=== PATIENT | female | born 1975 | race Caucasian/White ===

== ENCOUNTER 2021-04-29 11:59 | Observation (INO) | payer OTHER ==
[~2021-04-29] VITALS: Ht 170.2 cm; Wt 134.5 kg
[~2021-04-29 11:59] MED LIST: ALBU90OI INH; Anti-Diarrheal2 MG PO; CYCL10 PO; HYDHCL25 PO; LIDO700A20 TOP; ONDA4ODT SL; PANT40 PO; Propranolol HCl80 MG PO; RIZATRIPTAN10 MG PO; TRAZ50 PO; VITAMIN D32000 UNI1 PO; Zoloft100 MG PO; [UNRECOGNIZED DRUG - MIXTURE] TOP
[2021-04-29 12:28] LABS: BASOPHILS ABSOLUTE AUTO 0.03 K/mm3 (0.00-0.23); BASOPHILS PERCENT AUTO 0 % (0-2); EOSINOPHILS ABSOLUTE AUTO 0.09 K/mm3 (0.00-0.68); EOSINOPHILS PERCENT AUTO 1 % (0-6); Hematocrit 41.8 % (33.0-51.0); Hemoglobin 14.3 g/dL (11.5-16.0); IMMATURE GRAN ABSOLUTE AUTO 0.05 K/mm3 (0.00-0.10); IMMATURE GRAN PERCENT AUTO 1 % (0-1); LYMPHOCYTES ABSOLUTE AUTO 2.19 K/mm3 (0.84-5.20); LYMPHOCYTES PERCENT AUTO 21 % (21-46); MONOCYTES ABSOLUTE AUTO 0.77 K/mm3 (0.16-1.47); MONOCYTES PERCENT AUTO 7 % (4-13); Mean Corpuscular HGB 29.1 pg (26.0-34.0); Mean Corpuscular HGB Conc 34.2 g/dL (31.5-36.5); Mean Corpuscular Volume 85 fL (80-100); Mean Platelet Volume 9.6 fL (9.1-12.4); NEUTROPHILS ABSOLUTE AUTO 7.34 K/mm3 (1.96-9.15); NEUTROPHILS PERCENT AUTO 70 % (41-73); Platelet Count 292 K/mm3 (150-400); RDW Coefficient Variation 13.2 % (11.7-14.2); RDW Standard Deviation 41.1 fL (35.1-46.3); Red Blood Cell Count 4.92 M/mm3 (3.80-5.20); White Blood Cell Count 10.47 K/mm3 (4.00-11.30)
[2021-04-29 12:48] LABS: Alanine Aminotransfer (ALT/SGP 28 U/L (12-78); Albumin, Blood 3.2 g/dL (3.4-5.0); Albumin/Globulin Ratio 0.8 (0.8-1.8); Alk Phos 88 U/L (50-136); Anion Gap 8 mmol/L (6-16); Aspartate Aminotrans (AST/SGOT 20 U/L (12-37); Bilirubin, Total 0.7 mg/dL (0.1-1.0); Blood Urea Nitrogen 12 mg/dL (8-24); Bun/Creatinine Ratio 14.4 (12.0-20.0); CO2, Blood 21 mmol/L (21-32); Calcium, Blood 8.6 mg/dL (8.5-10.1); Chloride, Blood 106 mmol/L (98-108); Creatinine, Blood 0.84 mg/dL (0.40-1.00); Glomerular Filtration Rate >60 (60-); Glucose, Blood 118 mg/dL (70-99); Potassium, Blood 3.7 mmol/L (3.5-5.5); Sodium, Blood 135 mmol/L (136-145); Total Protein, Blood 7.2 g/dL (6.4-8.2)
[2021-04-29] MEDS ORDERED: Inderal 20 mg T20 MG PO (15:24)
[2021-04-29] MEDS ORDERED: Hydroxyzine HCl50 MG PO (15:24)
[2021-04-29] MEDS ORDERED: SERT100 PO (15:25)
[2021-04-29 19:51] LABS: Source, Urine Clean Catch
[2021-04-29 19:56] LABS: Appearance, Urine Clear (Clear); Bilirubin, Urine Neg (Neg); Blood, Urine Neg (Neg); Color, Urine Yellow (P-Yellow); Glucose Qualitative, Urine Neg (Neg); Ketones, Urine Neg (Neg); Leukocyte Esterase, Urine Neg (Neg); Nitrite, Urine Neg (Neg); Protein, Urine Neg (Neg); Urobilinogen, Urine NORM (Normal)
--- NOTE | 2021-04-29 20:09 | NUR ---
PT ADMITTED TO ROOM 363 FROM ED 1814. ORIENTED TO ROOM SETUP AND CALL LIGHT. PT CURRENT CHEST PAIN AND BILAT FLANK PAIN IS 6/10. INCREASES WITH DEEP INSP. VSS, SATS 99% ROOM AIR. RESP EVEN AND UNLABOERD. HANDS APPEAR CYANOTIC AND COLD. PT STATES SHE DOESN'T THINK THIS IS HEART RELATED. AWAITING TELE BOX. TUBE SYSTEM DOWN AND SENT SOMEONE TO GET TELE BOX. WILL CALL DR EAGLE FOR FURTHER ORDERS REGUARDING CP.
--- NOTE | 2021-04-29 20:12 | NUR ---
SUMM- PT A/O X4. CHEST PAIN ON ARRIVAL TO 363 04/30 IN CENTER OF CHEST RADIATING BILAT FLANK, FEELS LIKE A TIGHT BAND AROUND ABD, INCREASED PAIN WITH DEEP BREATH. CALLED DR EAGLE 1849 AND RECEIVED ORDER FOR NITRO SL X2. ASSESS WHETHER NITRO RELEIVES PAIN. IF NOT GIVE FENTANYL. AFTER 2 DOSES PAIN WENT FROM A 6-03/30. ABRAHAN TEE RN RESUMED CARE AND WILL F/U. SET UP TELE, CONFIRMED SR 70. NOC RN TO FOLLOW.
--- NOTE | 2021-04-30 00:20 | NUR ---
Female PT with chest pain rt upper chest that radiates to back had 2 nitro at beginning of shift with pain decrease from 6 to 5 & IV fentanyl helpful to decrease pain for a few minites. Tylenol 650 mg po with mild helpful effect. Call DR TORRES & curt for 15 to 30 mg toradol iv obtained Q 6 PRN severe pain as well as 5 to 10 mg oxycodone q 4 hrs severe pain. PT had abd US done & she is very tender RT Upper quad. Sleeping now with home cpap in place. Serial troponin neg so far, NSR on Tele. [place] PT said [facility] sent her to Hospital.
[2021-04-30 04:50] LABS: BASOPHILS ABSOLUTE AUTO 0.06 K/mm3 (0.00-0.23); BASOPHILS PERCENT AUTO 1 % (0-2); EOSINOPHILS ABSOLUTE AUTO 0.22 K/mm3 (0.00-0.68); EOSINOPHILS PERCENT AUTO 2 % (0-6); Hematocrit 40.2 % (33.0-51.0); Hemoglobin 13.6 g/dL (11.5-16.0); IMMATURE GRAN ABSOLUTE AUTO 0.07 K/mm3 (0.00-0.10); IMMATURE GRAN PERCENT AUTO 1 % (0-1); LYMPHOCYTES ABSOLUTE AUTO 3.14 K/mm3 (0.84-5.20); LYMPHOCYTES PERCENT AUTO 30 % (21-46); MONOCYTES ABSOLUTE AUTO 0.92 K/mm3 (0.16-1.47); MONOCYTES PERCENT AUTO 9 % (4-13); Mean Corpuscular HGB 29.6 pg (26.0-34.0); Mean Corpuscular HGB Conc 33.8 g/dL (31.5-36.5); Mean Corpuscular Volume 87 fL (80-100); Mean Platelet Volume 9.6 fL (9.1-12.4); NEUTROPHILS PERCENT AUTO 58 % (41-73); Platelet Count 250 K/mm3 (150-400); RDW Coefficient Variation 13.4 % (11.7-14.2); RDW Standard Deviation 42.4 fL (35.1-46.3); White Blood Cell Count 10.51 K/mm3 (4.00-11.30)
[2021-04-30 05:10] LABS: Alanine Aminotransfer (ALT/SGP 32 U/L (12-78); Albumin, Blood 3.3 g/dL (3.4-5.0); Alk Phos 73 U/L (50-136); Anion Gap 4 mmol/L (6-16); Aspartate Aminotrans (AST/SGOT 19 U/L (12-37); Bilirubin, Total 0.9 mg/dL (0.1-1.0); Blood Urea Nitrogen 13 mg/dL (8-24); Bun/Creatinine Ratio 13.3 (12.0-20.0); CO2, Blood 30 mmol/L (21-32); Calcium, Blood 8.5 mg/dL (8.5-10.1); Chloride, Blood 101 mmol/L (98-108); Creatinine, Blood 0.97 mg/dL (0.40-1.00); Globulin, Blood 3.2 g/dL (2.2-4.0); Glomerular Filtration Rate >60 (60-); Glucose, Blood 92 mg/dL (70-99); Sodium, Blood 135 mmol/L (136-145); Total Protein, Blood 6.5 g/dL (6.4-8.2)
--- NOTE | 2021-04-30 05:49 | NUR ---
PT reports good effect from toradol & oxycodone 5 mg with release of squeezing type pain in flanks & chest then. She is using own CPAP & resting quietly after. PT has both covid 19 vaccines the second immunization was Apr 08 2021
--- NOTE | 2021-04-30 09:39 | NUR ---
Echocardiogram completed.
[2021-04-30 11:49] LABS: Cholesterol 180 mg/dL (50-200); HDL Cholesterol 60 mg/dL (>39); LDL/HDL RATIO 1.5; Low Density Lipoprotein Chol 90 mg/dL (0-110); Triglycerides 152 mg/dL (30-160); Very Low Density Lipoprot Chol 30 mg/dL (6-32)
--- NOTE | 2021-04-30 13:00 | NUR ---
Pt resting in bed and eating her lunch. Pt is A&O and reports 3/10 pain in her chest and 5/10 pain in her kidney area. Pt denies dyspnea at rest but reports SOB with exertion. Pt denies anxiety at this time. Engaged in therapeutic conversation regarding advanced directives. Pt is agreeable to learn about AD. Pt is a and this RN thanked her for her service. Educated on life sustaining treatments in [place] and each section that needs to be completed. Discussed the importance of considering appointing a healthcare tour sales representative. Pt expresses appreciation and reports no concerns at this time. Spoke with Primary RN Lidia and discussed case. Palliative Care will remain available if called upon.
[2021-04-30] MEDS ORDERED: NITR100CA PO (15:59)
--- NOTE | 2021-04-30 16:23 | NUR ---
SHIFT SUMMARY JORDON HAD PIV REMOVED, PAPERWORK GONE OVER, NO NEW MEDS TO FAX TO PHARMACY. PT WHEELED DOWN TO ER IN . PT HAS APPT AT END OF MONTH WITH PCP, ATTEMPTED TO GET SOONER APPT, SHE IS ON A WAIT LIST FOR A SOONER APPT.
== END 2021-04-30 16:21 | disposition home or self-care (01) ==
LOC: ER 11:59 → MEDS 12:00
PROVIDERS: Emergency Medicine; Family Medicine; ADMIT Internal Medicine
DX: R07.89 Other chest pain (principal); N39.0 Urinary tract infection, site not specified; R10.811 Right upper quadrant abdominal tenderness; K21.9 Gastro-esophageal reflux disease without esophagitis; I10 Essential (primary) hypertension; E11.9 Type 2 diabetes mellitus without complications; K76.0 Fatty (change of) liver, not elsewhere classified; R11.2 Nausea with vomiting, unspecified; E66.9 Obesity, unspecified; F41.9 Anxiety disorder, unspecified; F32.9 Major depressive disorder, single episode, unspecified; M25.562 Pain in left knee; M25.571 Pain in right ankle and joints of right foot; N80.9 Endometriosis, unspecified; N28.1 Cyst of kidney, acquired; Z68.42 Body mass index [BMI] 45.0-49.9, adult
CPT/HCPCS: 36415; 71046; 76700; 80053; 80061; 81003; 83036; 83690; 84484; 85025; 93005; 93010; 93306; 94762; 96372; 96374; 96375; 96376; 99285-25; A9270; G0378; J1650; J1885; J2270; J2405; J3010

== ENCOUNTER 2024-12-22 13:14 | Emergency (ER) | payer OTHER ==
[~2024-12-22] VITALS: Ht 170.2 cm; Wt 149.7 kg
[~2024-12-22 13:14] MED LIST changes: +Hydroxyzine HCl50 MG PO; +Inderal 20 mg T20 MG PO; +NITR100CA PO; +SERT100 PO
[2024-12-22 13:57] LABS: BASOPHILS ABSOLUTE AUTO 0.03 K/mm3 (0.00-0.23); BASOPHILS PERCENT AUTO 0 % (0-2); EOSINOPHILS ABSOLUTE AUTO 0.02 K/mm3 (0.00-0.68); EOSINOPHILS PERCENT AUTO 0 % (0-6); Hematocrit 39.7 % (33.0-51.0); Hemoglobin 14.4 g/dL (11.5-16.0); IMMATURE GRAN ABSOLUTE AUTO 0.05 K/mm3 (0.00-0.10); IMMATURE GRAN PERCENT AUTO 0 % (0-1); LYMPHOCYTES ABSOLUTE AUTO 1.14 K/mm3 (0.84-5.20); LYMPHOCYTES PERCENT AUTO 10 % (21-46); MONOCYTES ABSOLUTE AUTO 1.39 K/mm3 (0.16-1.47); MONOCYTES PERCENT AUTO 12 % (4-13); Mean Corpuscular HGB 34.1 pg (26.0-34.0); Mean Corpuscular HGB Conc 36.3 g/dL (31.5-36.5); Mean Corpuscular Volume 94 fL (80-100); Mean Platelet Volume 9.8 fL (9.1-12.4); NEUTROPHILS ABSOLUTE AUTO 9.15 K/mm3 (1.96-9.15); NEUTROPHILS PERCENT AUTO 78 % (41-73); Platelet Count 133 K/mm3 (150-400); RDW Coefficient Variation 15.6 % (11.7-14.2); RDW Standard Deviation 53.8 fL (35.1-46.3); Red Blood Cell Count 4.22 M/mm3 (3.80-5.20); White Blood Cell Count 11.78 K/mm3 (4.00-11.30)
[2024-12-22 14:35] LABS: Albumin, Blood 2.8 g/dL (3.4-5.0); Albumin/Globulin Ratio 0.5 (0.8-1.8); Bilirubin, Total 5.1 mg/dL (0.1-1.0); Bun/Creatinine Ratio 8.4 (12.0-20.0); Calcium, Blood 9.3 mg/dL (8.5-10.1); Creatinine, Blood 0.59 mg/dL (0.40-1.00); Globulin, Blood 5.6 g/dL (2.2-4.0); Potassium, Blood 3.2 mmol/L (3.5-5.5); Total Protein, Blood 8.4 g/dL (6.4-8.2)
[2024-12-22] MEDS ORDERED: Cyclobenzaprine5 MG PO (15:05)
[2024-12-22] MEDS ORDERED: Ondansetron HCl 2 MG / ML 2ML Vial IV ONE ×2 (15:15→17:25)
[2024-12-22] MEDS ORDERED: NS 1,000 ML IV SCH (15:55)
[2024-12-22 16:32] LABS: CORONAVIRUS COVID-19 AG Negative (NEGATIVE); INFLUENZA A AG Negative (NEGATIVE); INFLUENZA B AG Negative (NEGATIVE)
[2024-12-22] MEDS ORDERED: Ketorolac Tromethamine 30mg Vial IV ONE (17:25)
[2024-12-22 17:32] LABS: Source, Urine Clean Catch
[2024-12-22 17:40] LABS: Appearance, Urine Hazy (Clear); Bilirubin, Urine Neg (Neg); Blood, Urine 1+ (Neg); Color, Urine Yellow (P-Yellow); Glucose Qualitative, Urine Neg (Neg); Ketones, Urine Neg (Neg); Leukocyte Esterase, Urine 2+ (Neg); Nitrite, Urine Neg (Neg); Protein, Urine 1+ (Neg); Urobilinogen, Urine 2+ (Normal)
[2024-12-22 17:47] LABS: Bacteria Many /hpf; Squamous Epithelial Cells Few /hpf (Few)
[2024-12-22 18:00] VITALS: BP 163/100
[2024-12-22] MEDS ORDERED: MetroNIDAZOLE 500 MG Tab PO ONE (18:05)
[2024-12-22] MEDS ORDERED: Ciprofloxacin 500 MG Tab PO ONE (18:05)
[2024-12-22] MEDS ORDERED: ONDA4ODT MM (18:09)
[2024-12-22] MEDS ORDERED: BENZ100A PO (18:09)
[2024-12-22] MEDS ORDERED: Cipro500 MG PO (18:09)
[2024-12-22] MEDS ORDERED: Flagyl500 MG PO (18:09)
== END 2024-12-22 18:35 | disposition home or self-care (01) ==
LOC: ER 13:14
PROVIDERS: Emergency Medicine; Student in an Organized Health Care Education/Training Program
DX: K52.9 Noninfective gastroenteritis and colitis, unspecified (principal); N39.0 Urinary tract infection, site not specified; K74.60 Unspecified cirrhosis of liver; F41.9 Anxiety disorder, unspecified; K21.9 Gastro-esophageal reflux disease without esophagitis; Z91.013 Allergy to seafood; Z88.0 Allergy status to penicillin; Z88.5 Allergy status to narcotic agent; Z79.891 Long term (current) use of opiate analgesic; Z79.899 Other long term (current) drug therapy; Z79.2 Long term (current) use of antibiotics
CPT/HCPCS: 71046; 74177; 80053; 81001; 83605; 83690; 85025; 87077; 87086; 87186; 87428-QW; 93005; 93010; 96361; 96374-59; 96375; 96376; 99284-25; A9270; J1885; J2405; J7030; Q9967

== ENCOUNTER 2024-12-24 11:09 | Emergency (ER) | payer OTHER ==
[~2024-12-24] VITALS: Ht 170.2 cm; Wt 142.9 kg
[~2024-12-24 11:09] MED LIST changes: +BENZ100A PO; +Cipro500 MG PO; +Cyclobenzaprine5 MG PO; +Flagyl500 MG PO; +ONDA4ODT MM
[2024-12-24] MEDS ORDERED: Benzonatate 100 MG Cap PO ONE ×3 (11:30→17:40)
[2024-12-24] MEDS ORDERED: CefTRIAXone Sodium 1,000 MG in NS 100 ML IV ONE (11:30)
[2024-12-24 11:40] LABS: BASOPHILS ABSOLUTE AUTO 0.04 K/mm3 (0.00-0.23); BASOPHILS PERCENT AUTO 1 % (0-2); EOSINOPHILS ABSOLUTE AUTO 0.08 K/mm3 (0.00-0.68); EOSINOPHILS PERCENT AUTO 1 % (0-6); Hematocrit 37.7 % (33.0-51.0); Hemoglobin 13.3 g/dL (11.5-16.0); IMMATURE GRAN ABSOLUTE AUTO 0.03 K/mm3 (0.00-0.10); IMMATURE GRAN PERCENT AUTO 0 % (0-1); LYMPHOCYTES ABSOLUTE AUTO 1.26 K/mm3 (0.84-5.20); LYMPHOCYTES PERCENT AUTO 15 % (21-46); MONOCYTES ABSOLUTE AUTO 1.09 K/mm3 (0.16-1.47); MONOCYTES PERCENT AUTO 13 % (4-13); Mean Corpuscular HGB 33.8 pg (26.0-34.0); Mean Corpuscular HGB Conc 35.3 g/dL (31.5-36.5); Mean Corpuscular Volume 96 fL (80-100); Mean Platelet Volume 10.3 fL (9.1-12.4); NEUTROPHILS ABSOLUTE AUTO 6.09 K/mm3 (1.96-9.15); NEUTROPHILS PERCENT AUTO 71 % (41-73); Platelet Count 128 K/mm3 (150-400); RDW Coefficient Variation 15.8 % (11.7-14.2); RDW Standard Deviation 55.6 fL (35.1-46.3); Red Blood Cell Count 3.94 M/mm3 (3.80-5.20); White Blood Cell Count 8.59 K/mm3 (4.00-11.30)
[2024-12-24] MEDS ORDERED: ALBU90OI INH (11:41)
[2024-12-24] MEDS ORDERED: CYMBALTA30 M1 PO (11:42)
[2024-12-24] MEDS ORDERED: LOPE2C PO (11:42)
[2024-12-24] MEDS ORDERED: RIZATRIPTAN10 MG SL (11:43)
[2024-12-24] MEDS ORDERED: PANT40 PO (11:43)
[2024-12-24] MEDS ORDERED: Metoclopramide HCl 5MG / ML 2ML Vial IV ONE (12:00)
[2024-12-24] MEDS ORDERED: NS 1,000 ML IV SCH ×2 (12:00→18:25)
[2024-12-24 12:01] LABS: Albumin, Blood 2.5 g/dL (3.4-5.0); Albumin/Globulin Ratio 0.5 (0.8-1.8); Bilirubin, Total 5.5 mg/dL (0.1-1.0); Bun/Creatinine Ratio 8.6 (12.0-20.0); Calcium, Blood 8.6 mg/dL (8.5-10.1); Creatinine, Blood 0.7 mg/dL (0.40-1.00); Globulin, Blood 5.3 g/dL (2.2-4.0); Potassium, Blood 3.6 mmol/L (3.5-5.5); Total Protein, Blood 7.8 g/dL (6.4-8.2)
[2024-12-24] MEDS ORDERED: Morphine Sulfate 4 MG/1 ML Injection IV ONE ×2 (15:15→17:40)
[2024-12-24 19:30] VITALS: BP 133/75
[2024-12-24] MEDS ORDERED: ONDA4ODT MM (20:24)
[2024-12-24] MEDS ORDERED: Diflucan150 MG PO (20:24)
== END 2024-12-24 21:41 | disposition home or self-care (01) ==
LOC: ER 11:09
PROVIDERS: Emergency Medicine
DX: K52.9 Noninfective gastroenteritis and colitis, unspecified (principal); E80.6 Other disorders of bilirubin metabolism; K80.20 Calculus of gallbladder without cholecystitis without obstruction; K21.9 Gastro-esophageal reflux disease without esophagitis; F41.9 Anxiety disorder, unspecified; F32.A Depression, unspecified; Z88.5 Allergy status to narcotic agent; Z88.0 Allergy status to penicillin; Z91.013 Allergy to seafood; Z79.899 Other long term (current) drug therapy
CPT/HCPCS: 36415; 71046; 74181; 76705; 80053; 83605; 85025; 87040; 93005; 93010; 96365; 96375; 99284-25; A9270; J0696; J2270; J2765; J7030

== ENCOUNTER 2025-02-27 15:14 | Inpatient (IN) | payer OTHER ==
[~2025-02-27] VITALS: Ht 170.2 cm; Wt 139.9 kg
[~2025-02-27 15:14] MED LIST changes: +CYMBALTA30 M1 PO; +Diflucan150 MG PO; +LOPE2C PO; +RIZATRIPTAN10 MG SL
[2025-02-27 16:44] LABS: BASOPHILS ABSOLUTE AUTO 0.03 K/mm3 (0.00-0.23); BASOPHILS PERCENT AUTO 1 % (0-2); EOSINOPHILS ABSOLUTE AUTO 0.01 K/mm3 (0.00-0.68); EOSINOPHILS PERCENT AUTO 0 % (0-6); Hematocrit 35.2 % (33.0-51.0); Hemoglobin 12.2 g/dL (11.5-16.0); IMMATURE GRAN ABSOLUTE AUTO 0.01 K/mm3 (0.00-0.10); IMMATURE GRAN PERCENT AUTO 0 % (0-1); LYMPHOCYTES ABSOLUTE AUTO 0.78 K/mm3 (0.84-5.20); LYMPHOCYTES PERCENT AUTO 13 % (21-46); MONOCYTES ABSOLUTE AUTO 0.76 K/mm3 (0.16-1.47); MONOCYTES PERCENT AUTO 13 % (4-13); Mean Corpuscular HGB 34.6 pg (26.0-34.0); Mean Corpuscular HGB Conc 34.7 g/dL (31.5-36.5); Mean Corpuscular Volume 100 fL (80-100); Mean Platelet Volume 10.2 fL (9.1-12.4); NEUTROPHILS ABSOLUTE AUTO 4.51 K/mm3 (1.96-9.15); NEUTROPHILS PERCENT AUTO 74 % (41-73); Platelet Count 82 K/mm3 (150-400); RDW Coefficient Variation 15.7 % (11.7-14.2); RDW Standard Deviation 57.3 fL (35.1-46.3); Red Blood Cell Count 3.53 M/mm3 (3.80-5.20)
[2025-02-27 17:25] LABS: Albumin, Blood 2.5 g/dL (3.4-5.0); Albumin/Globulin Ratio 0.6 (0.8-1.8); Bilirubin, Total 4.5 mg/dL (0.1-1.0); Bun/Creatinine Ratio 8.6 (12.0-20.0); Calcium, Blood 8.5 mg/dL (8.5-10.1); Creatinine, Blood 0.7 mg/dL (0.40-1.00); Globulin, Blood 4.2 g/dL (2.2-4.0); Potassium, Blood 3.5 mmol/L (3.5-5.5); Total Protein, Blood 6.7 g/dL (6.4-8.2)
[2025-02-27] MEDS ORDERED: Methocarbamol500 MG PO (18:20)
[2025-02-27] MEDS ORDERED: ASMANEX220 M14 INH (18:21)
[2025-02-27] MEDS ORDERED: Loperamide HCl 2 MG Cap PO PRN (19:50)
[2025-02-27] MEDS ORDERED: Ondansetron HCl 2 MG / ML 2ML Vial IV PRN (19:50)
[2025-02-27] MEDS ORDERED: Furosemide 10 MG/ML 4ML Vial IV SCH (20:00)
[2025-02-27] MEDS ORDERED: CefTRIAXone Sodium 1,000 MG in NS 100 ML IV SCH (21:00)
[2025-02-27] MEDS ORDERED: Lactobacil 2-S.Thermo-Bifido 1 1 Cap PO SCH (21:00)
[2025-02-27] MEDS ORDERED: Azithromycin 500 MG in NS 250 ML IV SCH (21:00)
[2025-02-27] MEDS ORDERED: Heparin Sodium,Porcine 5,000 UNIT/0.5 ML SDV SC SCH (21:00)
[2025-02-27] MEDS ORDERED: NS 250 ML IV PRN (23:50)
[2025-02-28] MEDS ORDERED: Acetaminophen 325 MG TABLET PO PRN (00:50)
[2025-02-28] MEDS ORDERED: Diabetic GuaiFENesin 100 MG/5 ML 5MLUDC PO ONE ×2 (00:50→01:10)
--- NOTE | 2025-02-28 00:51 | NUR ---
NEW T-ORDERS RECEIVED FROM THE ON-CALL HOSPITALIST DR. BOLAÑOS: -TYLENOL 650MG PO Q4HRS PRN -MUCINEX 600MG PO BID -MUCINEX 600MG PO NOW. ENTERED TO [employer], SEE EMAR.
[2025-02-28] MEDS ORDERED: GuaiFENesin 600 MG TabCR PO ONE (01:45)
--- NOTE | 2025-02-28 02:25 | NUR ---
SHIFT SUMMARY/ADMITTED TO MEDICAL FLOOR #[id number] @2309 REPORT RECEIVED FROM ALANA Hodge ED RN. @ 3891 PT ARRIVED TO MEDICAL FLOOR IN A GURNEY. CHARGE NURSE RACHANA COMPLETED THE ADMISSION ASSESSMENT. SKIN CHECK WITH THIS PBX TECHNICIAN. PT INDEPENDENTLY AMBULATED/TRANSFERRED TO THE HOSPITAL BED. PT BROUGHT ALL HER BELONINGS WITH HER. NON-SLIP SOCKS APPLIED AND EDUCATED ON FALL PRECAUTIONS. EDUCATED ON SMOKING POLICY. EDUCATED COMPANY DOCTOR LIGHT. RT BY THE BEDSIDE SET UP CPAP FOR THE NIGHT. CONTINUOUS PULSE OXIMETER IN PLACE. PT IS ON 4L VIA NASAL CANNULA. PT IS A/O X4, ABLE TO MAKE HER NEEDS KNOWN AND COOPERATIVE WITH CARE. BED AT THE LOWEST POSITION, CALL LIGHT WITHIN REACH.
[2025-02-28 04:28] VITALS: BP 66/55
[2025-02-28 04:33] VITALS: BP 133/65
[2025-02-28 05:02] LABS: BASOPHILS ABSOLUTE AUTO 0.03 K/mm3 (0.00-0.23); BASOPHILS PERCENT AUTO 0 % (0-2); EOSINOPHILS PERCENT AUTO 0 % (0-6); Hemoglobin 11.9 g/dL (11.5-16.0); IMMATURE GRAN ABSOLUTE AUTO 0.02 K/mm3 (0.00-0.10); IMMATURE GRAN PERCENT AUTO 0 % (0-1); LYMPHOCYTES ABSOLUTE AUTO 0.82 K/mm3 (0.84-5.20); LYMPHOCYTES PERCENT AUTO 11 % (21-46); MONOCYTES ABSOLUTE AUTO 0.96 K/mm3 (0.16-1.47); MONOCYTES PERCENT AUTO 13 % (4-13); Mean Corpuscular HGB 34.1 pg (26.0-34.0); Mean Corpuscular Volume 100 fL (80-100); Mean Platelet Volume 9.9 fL (9.1-12.4); NEUTROPHILS ABSOLUTE AUTO 5.49 K/mm3 (1.96-9.15); NEUTROPHILS PERCENT AUTO 75 % (41-73); Platelet Count 79 K/mm3 (150-400); RDW Coefficient Variation 15.4 % (11.7-14.2); RDW Standard Deviation 57.1 fL (35.1-46.3); Red Blood Cell Count 3.49 M/mm3 (3.80-5.20); White Blood Cell Count 7.32 K/mm3 (4.00-11.30)
[2025-02-28 05:09] LABS: International Normalized Ratio 1.54
[2025-02-28 05:23] LABS: Albumin, Blood 2.4 g/dL (3.4-5.0); Albumin/Globulin Ratio 0.6 (0.8-1.8); Bilirubin, Total 3.9 mg/dL (0.1-1.0); Bun/Creatinine Ratio 10.5 (12.0-20.0); Calcium, Blood 7.9 mg/dL (8.5-10.1); Creatinine, Blood 0.76 mg/dL (0.40-1.00); Globulin, Blood 4.2 g/dL (2.2-4.0); Magnesium, Blood 1.8 mg/dL (1.6-2.4); Potassium, Blood 3.3 mmol/L (3.5-5.5); Total Protein, Blood 6.6 g/dL (6.4-8.2)
[2025-02-28] MEDS ORDERED: Pantoprazole Sodium 40 MG Tab PO SCH (06:00)
[2025-02-28] MEDS ORDERED: Insulin Human Lispro 100 Units/ML 3ML Syringe SC SCH (07:30)
[2025-02-28] MEDS ORDERED: Albuterol 2.5 MG/3 ML VIAL INH PRN (08:05)
[2025-02-28 08:35] VITALS: BP 128/67
[2025-02-28] MEDS ORDERED: Furosemide 10 MG/ML 4ML Vial IV SCH (09:00)
[2025-02-28] MEDS ORDERED: Diabetic GuaiFENesin 100 MG/5 ML 5MLUDC PO SCH (09:00)
[2025-02-28] MEDS ORDERED: Guaifenesin/Dextromethorphan Syrup 5 ML UDC PO PRN (09:40)
[2025-02-28 15:21] VITALS: BP 114/66
[2025-02-28] MEDS ORDERED: Spironolactone 50 MG Tab PO SCH (17:00)
[2025-02-28 19:18] VITALS: BP 135/73
--- NOTE | 2025-02-28 19:29 | NUR ---
summary PATIENT CONTINUE TO HAVE HARSH PRODUCTIVE COUGH THATS BLOOD TINGED. DR LOWE NOTIFIED AND ORDERED ROBITUSSIN. NOTIFIED DR LOWE OF PATIENTS POTASSIUM LEVEL OF 3.3, STATED HE WOULD REVIEW AND SUPPLEMENT. PATIENT HAD A LOW GRADE TEMP THIS EVENING 100.0 AND MEDICATED WITH TYLENOL FOR THAT BUT ALSO PATIETN HAS MOD PAIN TO RIBS/CHEST FROM ALL THE COUGHING. MONITORING INTAKE AND OUTPUT. DAILY WEIGHTS. FLUID RESTRICTION OF 2L.
[2025-02-28] MEDS ORDERED: HYDROcodone 5-APAP 325 TAB PO PRN (20:05)
--- NOTE | 2025-02-28 20:06 | NUR ---
NEW T-ORDERS FROM , ON-CALL HOSPITALIST: -NORCO PO 5/325MG Q6HRS PRN -D/C HEPARIN 5000 UNITS SC D/T PT COUGHING UP BLOODY SPUTUM. CHARGE NURSE NOTIFIED. ENTERED TO [employer], SEE EMAR.
[2025-02-28] MEDS ORDERED: GuaiFENesin 600 MG TabCR PO SCH (21:00)
[2025-03-01 03:12] VITALS: BP 118/106
--- NOTE | 2025-03-01 03:24 | NUR ---
SHIFT SUMMARY PT CONTINUES TO HAVE COUGHING EPISODES DURING NIGHT HRS INTERMITTENTLY. PRODUCTIVE COUGH WITH MIXED CLEAR AND REDDISH SPUTUM. NAUSEA R/T COUGHING. MEDICATED PER EMAR. PT REPORTS 8/10 PAIN IN RIBS R/T COUGHING, BACK ACHE AND SORE THROAT. MEDICATED WITH NEW ORDER OF NORCO 5/325MG PO Q6HRS PRN. PT REPORTS EFFECTIVE. O2 @4L VIA NASAL CANNULA, CONTINUOUS PULSE OXIMETER SAT'S> 94%. RT BY THE BEDSIDE ADMINISTERING PRN NEB TX'S. CPAP @NIGHT WITH HUMIDIFIER. HEPARIN PROPHYLAXIS D/C'D PER HOSPITALIST D/T RED COLOR SPUTUM. SCD'S IN PLACE. LUNGS DIMNISHED @BASES, WHEEZING/TIGHT UPPER LOBES. PT IS ON 2L FLUID RESTRICTION AND VERBALIZED UNDERSTANDING. BED AT THE LOWEST POSITION, CALL LIGHT W/I REACH. PT IS A/O X4, ABLE TO MAKE HER NEEDS KNOWN AND COOPERATIVE WITH CARE.
[2025-03-01 04:41] LABS: BASOPHILS ABSOLUTE AUTO 0.03 K/mm3 (0.00-0.23); BASOPHILS PERCENT AUTO 1 % (0-2); EOSINOPHILS ABSOLUTE AUTO 0.01 K/mm3 (0.00-0.68); EOSINOPHILS PERCENT AUTO 0 % (0-6); Hematocrit 38.3 % (33.0-51.0); Hemoglobin 13.1 g/dL (11.5-16.0); IMMATURE GRAN ABSOLUTE AUTO 0.02 K/mm3 (0.00-0.10); IMMATURE GRAN PERCENT AUTO 0 % (0-1); LYMPHOCYTES ABSOLUTE AUTO 1.17 K/mm3 (0.84-5.20); LYMPHOCYTES PERCENT AUTO 20 % (21-46); MONOCYTES ABSOLUTE AUTO 0.79 K/mm3 (0.16-1.47); MONOCYTES PERCENT AUTO 13 % (4-13); Mean Corpuscular HGB 33.9 pg (26.0-34.0); Mean Corpuscular HGB Conc 34.2 g/dL (31.5-36.5); Mean Corpuscular Volume 99 fL (80-100); Mean Platelet Volume 10.2 fL (9.1-12.4); NEUTROPHILS ABSOLUTE AUTO 3.88 K/mm3 (1.96-9.15); NEUTROPHILS PERCENT AUTO 66 % (41-73); Platelet Count 85 K/mm3 (150-400); RDW Coefficient Variation 15.5 % (11.7-14.2); RDW Standard Deviation 56.8 fL (35.1-46.3); Red Blood Cell Count 3.86 M/mm3 (3.80-5.20)
[2025-03-01 05:02] LABS: Albumin, Blood 2.7 g/dL (3.4-5.0); Albumin/Globulin Ratio 0.6 (0.8-1.8); Bilirubin, Total 3.6 mg/dL (0.1-1.0); Bun/Creatinine Ratio 13.2 (12.0-20.0); Calcium, Blood 8.3 mg/dL (8.5-10.1); Creatinine, Blood 0.76 mg/dL (0.40-1.00); Globulin, Blood 4.8 g/dL (2.2-4.0); Potassium, Blood 3.3 mmol/L (3.5-5.5); Total Protein, Blood 7.5 g/dL (6.4-8.2)
[2025-03-01 07:37] VITALS: BP 121/76
[2025-03-01] MEDS ORDERED: Albuterol 2.5 MG/3 ML VIAL INH SCH (08:05)
[2025-03-01] MEDS ORDERED: Benzonatate 100 MG Cap PO PRN (08:50)
[2025-03-01] MEDS ORDERED: Pantoprazole Sodium 40 MG Injection IV SCH (16:00)
[2025-03-01 16:22] LABS: Hematocrit 35.3 % (33.0-51.0); Mean Corpuscular HGB 34.1 pg (26.0-34.0); Mean Corpuscular Volume 100 fL (80-100); Mean Platelet Volume 10.9 fL (9.1-12.4); Platelet Count 79 K/mm3 (150-400); RDW Coefficient Variation 15.5 % (11.7-14.2); RDW Standard Deviation 57.2 fL (35.1-46.3); Red Blood Cell Count 3.52 M/mm3 (3.80-5.20); White Blood Cell Count 5.39 K/mm3 (4.00-11.30)
[2025-03-01 16:56] VITALS: BP 133/76
[2025-03-01] MEDS ORDERED: Carvedilol 3.125 MG Tab PO SCH (17:00)
[2025-03-01 19:56] VITALS: BP 118/67
--- NOTE | 2025-03-01 20:00 | NUR ---
SHIFT SUMMARY PT IS A/OX4. INDEPENDENT TO BSC. ON 2L WATER RESTIRCTION. NO ACUTE CHANGES THROUGHOUT THIS SHIFT. PT REMAINS ON 4L NC. PT REPORTS SPUTUM IS LESS BLOODY WHEN COMPARED TO YESTERDAY, PINK IN COLOR THROUGHOUT THIS SHIFT. MEDICATED WITH ROBITUSSIN TWICE THIS SHIFT AND NORCO X1 PER JAN. PT IS PLEASANT AND COOPERATIVE WITH CARE AND CALLS APPROPRIATELY USING THE CALL LIGHT.
--- NOTE | 2025-03-02 03:01 | NUR ---
SHIFT SUMMARY NO ACUTE EVENTS DURING THIS SHIFT. O2 VIA NASAL CANNULA @4L. CONTINUOUS PULSE OXIMETER SAT'S>94%. CPAP @NIGHT. PRN ROBITUSSIN ADMINISTERED X2 FOR PRODUCTIVE COUGH. PT PRODUCING LIGHT BROWN SPUTUM, MODERATE AMOUNT. PRN NORCO 5/325MG ADMINISTERED @HS FOR C/O 8/10 PAIN @RIBS/CHEST/SORE THROAT R/T COUGHING. BILATERAL +2 EDEMA ON LE'S. IV ABX'S INFUSED ORDERED. PT ABLE TO GET FEW HRS REST DURING THIS SHIFT. PT IS A/O X4, ABLE TO MAKE HER NEEDS KNOWN AND COOPERATIVE WITH CARE. BED AT THE LOWEST POSITION, CALL LIGHT W/I REACH. PT CONTINUES ON 2L FLUID RESTRICTION AND DAILY STANDING WT.
[2025-03-02 04:35] VITALS: BP 160/74
[2025-03-02 05:39] LABS: Hematocrit 37.1 % (33.0-51.0); Hemoglobin 12.3 g/dL (11.5-16.0); Mean Corpuscular HGB 33.2 pg (26.0-34.0); Mean Corpuscular HGB Conc 33.2 g/dL (31.5-36.5); Mean Corpuscular Volume 100 fL (80-100); Mean Platelet Volume 10.8 fL (9.1-12.4); Platelet Count 91 K/mm3 (150-400); RDW Coefficient Variation 15.3 % (11.7-14.2); White Blood Cell Count 5.96 K/mm3 (4.00-11.30)
[2025-03-02 06:04] LABS: Bun/Creatinine Ratio 13.6 (12.0-20.0); Calcium, Blood 7.9 mg/dL (8.5-10.1); Creatinine, Blood 0.81 mg/dL (0.40-1.00); Potassium, Blood 3.5 mmol/L (3.5-5.5)
[2025-03-02 07:18] VITALS: BP 119/61
[2025-03-02 15:01] VITALS: BP 126/59
--- NOTE | 2025-03-02 18:35 | NUR ---
ASSUMED CARE OF PT, COMPARED TO NIGHT BEFRE PT DOING MUCH BETTER, STILL IS WORKING TO BREATH BUT IS MAINTAING SATURATION IN THE MID 90S. THICK BROWN AND RED STREAKED SPUTUM NOTED. PT GIVEN COUGH MEDICATION FOR COMFORT. RESPIRATORY TREATMENTS Q 4 AND PT HASNT HAD ANY COMPLAINTS. PT ABLE TO MAKE NEEDS KNOWN
[2025-03-02 19:42] VITALS: BP 108/58
--- NOTE | 2025-03-02 21:52 | NUR ---
NEW T-ORDER RECEIVED FROM THE ON-CALL HOSPITALIST DR. GANDARA: COLACE 100MG PO BID AND COLACE 100MG PO NOW. ENTERED TO [employer], SEE EMAR.
[2025-03-02] MEDS ORDERED: Docusate Sodium 100 MG Cap PO ONE (21:55)
[2025-03-02 23:55] VITALS: BP 103/60
--- NOTE | 2025-03-03 03:08 | NUR ---
SHIFT SUMMARY NO ACUTE EVENTS DURING THIS SHIFT. PT HAD ONE LONGER EPISODE OF COUGHING, RT BY THE BEDSIDE TO ADMINISTER NEB TX. TESSALON PEARLS AND ROBITUSSIN PRN Q4-6HRS ADMINISTERED T/O THIS SHIFT. PRN NORCO FOR PT C/O 8/10 RIBS/CHEST/BACK R/T COUGHING. O2 @5L VIA NASAL CANNULA. CONTINUOUS PULSE OXIMETER SAT'S MID 90'S. PT'S WOULD LIKE TO MEET WITH THE PROVIDER, WILL BE BY THE BEDSIDE AROUND 0830 THIS MORNING FOR A FEW HOURS. BED AT THE LOWEST POSITION, CALL LIGHT W/I REACH.
[2025-03-03 04:30] VITALS: BP 116/61
[2025-03-03 05:31] LABS: BASOPHILS ABSOLUTE AUTO 0.02 K/mm3 (0.00-0.23); BASOPHILS PERCENT AUTO 0 % (0-2); EOSINOPHILS ABSOLUTE AUTO 0.09 K/mm3 (0.00-0.68); EOSINOPHILS PERCENT AUTO 1 % (0-6); Hematocrit 36.5 % (33.0-51.0); Hemoglobin 12.5 g/dL (11.5-16.0); Mean Corpuscular HGB 33.9 pg (26.0-34.0); Mean Corpuscular HGB Conc 34.2 g/dL (31.5-36.5); Mean Corpuscular Volume 99 fL (80-100); Platelet Count 95 K/mm3 (150-400); RDW Coefficient Variation 14.9 % (11.7-14.2); RDW Standard Deviation 54.4 fL (35.1-46.3); Red Blood Cell Count 3.69 M/mm3 (3.80-5.20); White Blood Cell Count 6.41 K/mm3 (4.00-11.30)
[2025-03-03 05:36] LABS: IMMATURE GRAN ABSOLUTE AUTO 0.02 K/mm3 (0.00-0.10); IMMATURE GRAN PERCENT AUTO 0 % (0-1); LYMPHOCYTES ABSOLUTE AUTO 1.52 K/mm3 (0.84-5.20); LYMPHOCYTES PERCENT AUTO 24 % (21-46); MONOCYTES ABSOLUTE AUTO 1.11 K/mm3 (0.16-1.47); MONOCYTES PERCENT AUTO 17 % (4-13); NEUTROPHILS ABSOLUTE AUTO 3.65 K/mm3 (1.96-9.15); NEUTROPHILS PERCENT AUTO 57 % (41-73)
[2025-03-03 05:57] LABS: BAND PERCENT MAN 3 % (0-8); BASOPHILS PERCENT MAN 0 % (0-2); EOSINOPHILS PERCENT MAN 0 % (0-6); LYMPHOCYTES ABSOLUTE MAN 0.96 K/mm3 (0.84-5.20); LYMPHOCYTES PERCENT MAN 15 % (21-46); MONOCYTES ABSOLUTE MAN 0.64 K/mm3 (0.16-1.47); MONOCYTES PERCENT MAN 10 % (4-13); SEG NEUTROPHILS PERCENT MAN 72 % (41-73); TOTAL CELLS COUNTED 100
[2025-03-03 06:00] LABS: Albumin, Blood 2.4 g/dL (3.4-5.0); Albumin/Globulin Ratio 0.6 (0.8-1.8); Bilirubin, Total 2.7 mg/dL (0.1-1.0); Calcium, Blood 8.4 mg/dL (8.5-10.1); Creatinine, Blood 0.73 mg/dL (0.40-1.00); Globulin, Blood 4.2 g/dL (2.2-4.0); Potassium, Blood 3.2 mmol/L (3.5-5.5); Total Protein, Blood 6.6 g/dL (6.4-8.2)
[2025-03-03 07:24] VITALS: BP 125/72
[2025-03-03] MEDS ORDERED: Spironolactone 50 MG Tab PO SCH (09:00)
[2025-03-03] MEDS ORDERED: Sennosides 8.6 MG Tab PO PRN (09:00)
[2025-03-03] MEDS ORDERED: Polyethylene Glycol 3350 17 gm PO SCH (09:00)
[2025-03-03] MEDS ORDERED: Docusate Sodium 100 MG Cap PO SCH (09:00)
[2025-03-03] MEDS ORDERED: Potassium Chloride 10 Meq Tablet SA PO SCH (09:00)
[2025-03-03 15:26] VITALS: BP 106/62
[2025-03-03 19:36] VITALS: BP 112/58
[2025-03-04] VITALS (7 sets, daily range): BP systolic 104–124; BP diastolic 60–76
--- NOTE | 2025-03-04 03:15 | NUR ---
SHIFT SUMMARY NO ACUTE EVENTS DURING THIS SHIFT. PT IS ON 4L VIA NASAL CANNULA, SAT'S LOW 90%. FEW COUGHING EPISODES, RT ADMINISTERING NEB TX'S BY THE BEDSIDE. MILD EFFECTIVNESS OF THE PRN TESSALON PEARLS AND ROBITUSSIN. PT C/O 7-8/10 RIBS/CHEST/BACK PAIN R/T COUGHING. PRN NORCO PO ADMINISTERED ORDERED. BED AT THE LOWEST POSITION, CALL LIGHT W/I REACH. PT IS ABLE TO MAKE HER NEEDS KNOWN AND IS COOPERATIVE WITH CARE.
[2025-03-04 05:13] LABS: BASOPHILS ABSOLUTE AUTO 0.04 K/mm3 (0.00-0.23); BASOPHILS PERCENT AUTO 1 % (0-2); EOSINOPHILS ABSOLUTE AUTO 0.16 K/mm3 (0.00-0.68); EOSINOPHILS PERCENT AUTO 3 % (0-6); Hemoglobin 12.3 g/dL (11.5-16.0); Mean Corpuscular HGB 33.2 pg (26.0-34.0); Mean Corpuscular HGB Conc 33.2 g/dL (31.5-36.5); Mean Corpuscular Volume 100 fL (80-100); Mean Platelet Volume 11.1 fL (9.1-12.4); Platelet Count 118 K/mm3 (150-400); RDW Coefficient Variation 14.9 % (11.7-14.2); RDW Standard Deviation 55.7 fL (35.1-46.3); White Blood Cell Count 5.95 K/mm3 (4.00-11.30)
[2025-03-04 05:15] LABS: IMMATURE GRAN ABSOLUTE AUTO 0.02 K/mm3 (0.00-0.10); IMMATURE GRAN PERCENT AUTO 0 % (0-1); LYMPHOCYTES ABSOLUTE AUTO 1.76 K/mm3 (0.84-5.20); LYMPHOCYTES PERCENT AUTO 30 % (21-46); MONOCYTES ABSOLUTE AUTO 0.97 K/mm3 (0.16-1.47); MONOCYTES PERCENT AUTO 16 % (4-13); NEUTROPHILS PERCENT AUTO 50 % (41-73)
[2025-03-04 05:44] LABS: Albumin, Blood 2.3 g/dL (3.4-5.0); Albumin/Globulin Ratio 0.5 (0.8-1.8); Bilirubin, Total 2.5 mg/dL (0.1-1.0); Bun/Creatinine Ratio 13.8 (12.0-20.0); Calcium, Blood 8.1 mg/dL (8.5-10.1); Creatinine, Blood 0.8 mg/dL (0.40-1.00); Globulin, Blood 4.5 g/dL (2.2-4.0); Potassium, Blood 3.1 mmol/L (3.5-5.5); Total Protein, Blood 6.8 g/dL (6.4-8.2)
[2025-03-04] MEDS ORDERED: Potassium Chloride 40 MEQ in NS 250 ML IV ONE (09:15)
[2025-03-04] MEDS ORDERED: Potassium Chloride 20 MEQ TabCR PO ONE (12:00)
[2025-03-04] MEDS ORDERED: Peg 400/Hypromellose/Glycerin 15 DROP/ML BTL BOTHEYES PRN (18:20)
--- NOTE | 2025-03-04 19:27 | NUR ---
assumed care of pt. pt doing better today, pt states she feels exhausted. o2 decreaased to 3l from 4 and maintaining mid 90s. cough treated with medication sputum more clr today, but is still thick. pt is independant in room and is very cooperative with care, calls appropriatly and makes needs known.
--- NOTE | 2025-03-05 02:57 | NUR ---
SHIFT SUMMARY NO ACUTE EVENTS DURING THIS SHIFT. O2 @3L VIA NASAL CANNULA. O2 SAT'S LOW 90'S. CPAP DURING NIGHT HRS. MEDICATED PER EMAR FOR C/O 7/10 CHEST/BACK/RIBS PAIN R/T COUGHING. PT REPORTS EFFECTIVE. PRN ROBITUSSIN AND TESSALON PEARLS ADMINISTERED. PT AWARE OF THE 2L FLUID RESTRICTION. SMALL BM THIS HS. BED AT THE LOWEST POSITION, CALL LIGHT W/I REACH. PT IS A/O X4, ABLE TO MAKE HER NEEDS KNOWN AND COOPERATIVE WITH CARE.
[2025-03-05 04:09] VITALS: BP 119/64
[2025-03-05] MEDS ORDERED: Artificial Tears Opth Oint 7 GM BOTHEYES PRN (04:50)
--- NOTE | 2025-03-05 04:50 | NUR ---
NEW T-ORDER FROM THE ON-CALL HOSPITALIST: REFRESH EYE DROPS;1 DROP BOTH EYES Q6HRS PRN. ENTERED TO [employer], SEE EMAR.
[2025-03-05 06:20] LABS: BASOPHILS ABSOLUTE AUTO 0.03 K/mm3 (0.00-0.23); BASOPHILS PERCENT AUTO 1 % (0-2); EOSINOPHILS ABSOLUTE AUTO 0.16 K/mm3 (0.00-0.68); EOSINOPHILS PERCENT AUTO 3 % (0-6); Hematocrit 36.9 % (33.0-51.0); Hemoglobin 12.5 g/dL (11.5-16.0); IMMATURE GRAN ABSOLUTE AUTO 0.02 K/mm3 (0.00-0.10); IMMATURE GRAN PERCENT AUTO 0 % (0-1); LYMPHOCYTES ABSOLUTE AUTO 1.89 K/mm3 (0.84-5.20); LYMPHOCYTES PERCENT AUTO 31 % (21-46); MONOCYTES ABSOLUTE AUTO 0.94 K/mm3 (0.16-1.47); MONOCYTES PERCENT AUTO 15 % (4-13); Mean Corpuscular HGB 33.5 pg (26.0-34.0); Mean Corpuscular HGB Conc 33.9 g/dL (31.5-36.5); Mean Corpuscular Volume 99 fL (80-100); NEUTROPHILS ABSOLUTE AUTO 3.05 K/mm3 (1.96-9.15); NEUTROPHILS PERCENT AUTO 50 % (41-73); Platelet Count 145 K/mm3 (150-400); RDW Coefficient Variation 14.9 % (11.7-14.2); RDW Standard Deviation 54.5 fL (35.1-46.3); Red Blood Cell Count 3.73 M/mm3 (3.80-5.20); White Blood Cell Count 6.09 K/mm3 (4.00-11.30)
[2025-03-05 06:48] LABS: Albumin, Blood 2.4 g/dL (3.4-5.0); Albumin/Globulin Ratio 0.5 (0.8-1.8); Bilirubin, Total 2.4 mg/dL (0.1-1.0); Bun/Creatinine Ratio 17.7 (12.0-20.0); Calcium, Blood 8.9 mg/dL (8.5-10.1); Creatinine, Blood 0.62 mg/dL (0.40-1.00); Globulin, Blood 4.6 g/dL (2.2-4.0); Potassium, Blood 3.8 mmol/L (3.5-5.5)
[2025-03-05 07:50] VITALS: BP 129/69
--- NOTE | 2025-03-05 10:52 | NUR ---
FIRST BM WAS SMALL AN FIRM MIXED IN THE URINE. SECOND BM WAS LARGE DIAHHREA. BOTH WERE IN THE BSC
[2025-03-05] MEDS ORDERED: MethylPREDNISolone Sod Succ 125 MG Vial IV SCH (12:00)
[2025-03-05] MEDS ORDERED: Dextran/Hypromellose/Glycerin 15 DROP/ML BTL BOTHEYES PRN (13:40)
[2025-03-05 15:22] VITALS: BP 135/83
--- NOTE | 2025-03-05 18:28 | NUR ---
SHIFT NOTE PT UP IN CHAIR AT BEDSIDE. TOLERATING WELL. MEDCIATED FOR COUGH ANDF CHEST WALL PAIN X1. EFFECTIVE. GOOD APPETITE. COMPLIANT WITH FLUID RESTRICTION OF 2000ML. VOIDING PER BSC. EYS AND SKIN STILL YELLOWISH. CARE ONGOING.
[2025-03-05 20:25] VITALS: BP 130/76
[2025-03-05 23:53] VITALS: BP 127/79
--- NOTE | 2025-03-06 02:39 | NUR ---
SHIFT SUMMARY A&OX4, O2 3 TO 3.5 L/M VIA NC W/A AND CPAP DURING SLEEP SATS UPPER 80S TO LOW 90S W/ MIN. ACTIVITY. FREQUENT COUGH MOSTLY NON PRODUCTIVE NOW. POOR ACTIVITY TOLERANCE CONT. ABLE TO USE BSC OR AMB TO BR AT SLOW PACE W/ REST PERIODS. DIFFICULT TO ASSESS FOR ADVENTITIOUS LUNG SOUNDS DUE TO DEEP BREATHING PROVOKES COUGHING HOWEVER ARE DIMINISHED T/O. DISCUSSED DEEP BREATHING, PACING ACTIVITIES & ASKING FOR HELP WITH EVEN SMALL TASKS NEEDED TO CONSERVE ENERGY. AFEBRILE. IV ROCEPHIN ONGOING. PRN NORCO FOR GENERALIZED PAIN,PRN TESSALON VINCE FOR COUGH. RECEIVED SECOND DOSE SCHEDULED SOLUMEDROL AT 0000. EDUCATED ON THE NEW MEDICATION. MAKES NEEDS KNOWN. GOOD JUDGEMENT & SAFETY AWARENESS NOTED.
[2025-03-06 03:33] VITALS: BP 131/85
[2025-03-06 07:18] VITALS: BP 115/68
[2025-03-06] MEDS ORDERED: Vancomycin HCL 2,500 MG in NS 500 ML IV ONE (08:15)
[2025-03-06] MEDS ORDERED: LevoFLOXacin 750 MG/D5W 150ML 150 ML IV SCH (09:00)
[2025-03-06 14:51] VITALS: BP 118/69
[2025-03-06] MEDS ORDERED: Insulin Human Lispro 100 Units/ML 3ML Syringe SC SCH (16:30)
[2025-03-06] MEDS ORDERED: Potassium Chloride 20 MEQ TabCR PO SCH (17:00)
--- NOTE | 2025-03-06 17:39 | NUR ---
SHIFT SUMMARY PT AOX4, COOPERATIVE, ABLE TO MAKE NEEDS KNOWN. PT IS SBA TO BATHROOM/BSC FOR VOIDING. ON 3L O2 CURRENTLY. TOLERATING PO AND IV MEDICATION. COMPLAINED OF PAIN ONCE THIS SHIFT, MEDICATED PER EMAR. BED IN LOWEST POSITION, CALL LIGHT WITHIN REACH.
[2025-03-06] MEDS ORDERED: Furosemide 10 MG/ML 4ML Vial IV SCH (18:00)
[2025-03-06] MEDS ORDERED: Vancomycin HCL 1,250 MG in NS 250 ML IV SCH (20:00)
[2025-03-06 20:01] VITALS: BP 116/70
[2025-03-06] MEDS ORDERED: Insulin Glargine-Yfgn 100 Unit/mL 3 ML SYR SC SCH (21:00)
[2025-03-06 23:41] VITALS: BP 116/64
[2025-03-07 03:28] VITALS: BP 107/63
--- NOTE | 2025-03-07 04:29 | NUR ---
SHIFT SUMMARY A&OX4, IV ANTIBIOTICS FOR PNEUMONIA ONGOING-NO SX ADVERSE RXNS-COUGH NON PRODUCTIVE AND LESS FREQUENT THAN PREVIOUS NOC. LUNG SOUNDS COARSE,WHEEZY AND DIM T/O. PT REPORST NEB TXS ARE HELPFUL. NORCO FOR ACUTE AND CHRONIC PAIN HAS BEEN EFFECTIVE PER PT. STILL COUGHING FREQUENTLY HOWEVER "LESS OVERALL" PER PT. STILL VERY DYSPNEIC WITH EXERTION. O2 AT 3L/M VIA NC W/A AND BLED INTO CPAP W/SLEEP.VOIDING SUFFICIENT QUANTITIES CLEAR MARK URINE, FLUID RESTRICTION ONGOING. NO ACUET EVENTS OVERNIGHT.
[2025-03-07 05:45] LABS: Bun/Creatinine Ratio 21.8 (12.0-20.0); Calcium, Blood 8.7 mg/dL (8.5-10.1); Creatinine, Blood 0.73 mg/dL (0.40-1.00); Potassium, Blood 4.6 mmol/L (3.5-5.5)
[2025-03-07 07:15] VITALS: BP 126/75
[2025-03-07 12:17] LABS: Vancomycin, Trough 12.7 ug/mL (5.0-10.0)
[2025-03-07 15:11] VITALS: BP 118/77
--- NOTE | 2025-03-07 17:46 | NUR ---
NO CHANGES WITH PT TODAY. PT HAD C/O PAIN SEE EMAR FOR DETAILS AND FREQUENCY. PT HAD NO C/O SO OR CHEST PAIN. PT REMAINED ON 4 L NC.
[2025-03-07 19:20] VITALS: BP 117/70
[2025-03-07] MEDS ORDERED: Insulin Glargine-Yfgn 100 Unit/mL 3 ML SYR SC SCH (21:00)
[2025-03-08 00:23] VITALS: BP 103/63
[2025-03-08 05:02] VITALS: BP 104/65
[2025-03-08 07:36] VITALS: BP 126/79
[2025-03-08] MEDS ORDERED: Insulin NPH 100 Unit / ML 10ML Vial SC ONE (09:30)
[2025-03-08 12:20] VITALS: BP 130/80
[2025-03-08] MEDS ORDERED: Furosemide 10 MG/ML 4ML Vial IV SCH (13:00)
[2025-03-08 14:33] VITALS: BP 133/92
[2025-03-08] MEDS ORDERED: Insulin Human Lispro 100 Units/ML 3ML Syringe SC SCH (16:30)
--- NOTE | 2025-03-08 16:46 | NUR ---
SHIFT SUMMARY MS WOOD HAS SOB WITH EXERTION. OXYGEN DELIVERY DOWN TO 2.5L MOST OF THE SHIFT, 2L NC CURRENTLY. ON CONTINUOUS PULSE OX IN THE 90S. UP TO THE BATHROOM WITH STAND BY ASSISTANCE. ON TELEMETRY, SR WITH PVCS, NO CALLS FROM WAFER FABRICATOR. BLOOD SUGARS HAVE BEEN ELEVATED IN THE 300S, EXTRA DOSE OF INSULIN THIS MORNING AND SLIDING SCALE INCREASED TO HIGH FROM MEDIUM. DOING INCENTIVE SPIROMETER WITH GOOD TECHNIQUE TO ~1000CC. EDUCATED AND ENCOURAGED TO DO IT HOURLY. BED LOW, CALL LIGHT IN REACH, USING CALL LIGHT APPROPRIATELY.
[2025-03-08 19:27] VITALS: BP 114/71
[2025-03-08] MEDS ORDERED: MethylPREDNISolone Sod Succ 125 MG Vial IV SCH (21:00)
[2025-03-09] VITALS (8 sets, daily range): BP systolic 109–126; BP diastolic 66–79
--- NOTE | 2025-03-09 05:17 | NUR ---
QUALITY ASSURANCE TEST PROGRAM MANAGER SUMMARY PT A/OX4. ABLE TO MAKE NEEDS KNOWN. NO ACUTE EVENTS. PT REPORTS IMPROVEMENT TO HER COUGH. CPAP ON DURING SLEEPING WITH O2 BLEED IN. PT ON 2LPM NASAL CANULA WHEN AWAKE. PT INDEPENDENT TO THE BATHROOM. CALL LIGHT ACCESSIBLE. REGULAR ROUNDING T/O THE SHIFT.
[2025-03-09 05:24] LABS: Bun/Creatinine Ratio 27.4 (12.0-20.0); Calcium, Blood 8.5 mg/dL (8.5-10.1); Creatinine, Blood 0.84 mg/dL (0.40-1.00); Potassium, Blood 4.6 mmol/L (3.5-5.5)
[2025-03-09] MEDS ORDERED: Miconazole Nitrate 2% 85 GM PWD TOP SCH (10:35)
--- NOTE | 2025-03-09 17:45 | NUR ---
SHIFT SUMMARY. MS WOOD HAS SATS LOW 90S ON 2L NC ON CONTINOUS PULSE OX. THERE WAS AN ATTEMPT TO WEAN DOWN TO 1L NC BUT SAT DROPPED TO THE 80S. SHE IS UP INDEPENDENTLY TO THE BATHROOM ON O2 WITH STEADY GAIT, SOME SOB WITH EXERTION. BLOOD GLUCOSE 337 BEFORE SUPPER BUT SHE SAID SHE DRANK AN ENSURE AFTER LUNCH. ON TELEMETRY, NSR, OCC PVCS, NO CALLS FROM CREDIT REVIEW ANALYST. GENERAL BODY ACHES, OCCASIONAL HEADACHE, HELPED WITH ANALGESIA. BED LOW, CALL LIGHT IN REACH.
[2025-03-09] MEDS ORDERED: MethylPREDNISolone Sod Succ 125 MG Vial IV SCH (21:00)
[2025-03-09] MEDS ORDERED: Insulin Glargine-Yfgn 100 Unit/mL 3 ML SYR SC SCH (21:00)
--- NOTE | 2025-03-09 22:51 | NUR ---
NURSING NOTE: PT HAD CBG OF 484 @2013, AFTER RECIEVING COVERAGE BEFORE DINNER OF 12U. PROVIDER NOTIFIED, ORDERED 7U HUMALOG TO BE GIVEN NOW W/ SCHEDULED GLARGINE, AND RECHECK 1 HR. CBG RECHECKED SHOWING 433 @2141, PT ASSYMPTOMATIC AND PROVIDER NOTIFIED. FURTHER 7U HUMALOG ORDERED AND TO RECHECK IN THE MORNING.
[2025-03-10 03:40] VITALS: BP 112/78
--- NOTE | 2025-03-10 04:50 | NUR ---
SHIFT SUMMARY: PT AOX4 IND IN THE ROOM. CALLS APPROPRIATELY AND COOPERATIVE IN CARE. PT TOLERATING MEDICATIONS WELL. HAD HIGH CBGS START OF SHIFT, SEE NURSING NOTE FOR DETAILS. PT HAVING GOOD OUTPUT AND STAYING WITHING IN RANGE FOR FREE WATER RESTRICTION. TOLERATING DIET WELL. PT SATTING WELL ON CPAP AND ON 2L OF O2. NO ACUTE EVENTS OVERNIGHT. PT IN BED RESTING, BED IN LOWEST POSITION, CALL LIGHT IN REACH. CONTINUING CARE.
[2025-03-10 05:01] LABS: Calcium, Blood 8.4 mg/dL (8.5-10.1); Creatinine, Blood 0.83 mg/dL (0.40-1.00); Potassium, Blood 4.5 mmol/L (3.5-5.5)
[2025-03-10 07:48] VITALS: BP 109/69
[2025-03-10] MEDS ORDERED: PredniSONE 20 MG Tab PO SCH (09:00)
[2025-03-10] MEDS ORDERED: Torsemide 20 MG TAB PO SCH ×2 (09:00→11:00)
[2025-03-10 17:18] VITALS: BP 116/64
--- NOTE | 2025-03-10 17:31 | NUR ---
SHIFT SUMMARY PT CONT LEVEL OF CARE. PT NOTED TO BE A&OX4 AND IND IN ROOM WITH BRP. PT CONT TO UTILIZE 1-2L OF OXYGEN LUNGS SOUNDS HAVE IMPROVED WHEEZING NO LONGER NOTED. PHYSICAN DC STERIODS AND STARTED PT ON TOROSIMIDE THIS SHIFT. PLAN IS TO POSSIBLE DC IN 1-2 DAYS.
[2025-03-10 19:37] VITALS: BP 119/72
[2025-03-11] VITALS (8 sets, daily range): BP systolic 100–130; BP diastolic 56–81
--- NOTE | 2025-03-11 04:38 | NUR ---
SHIFT SUMMARY: PT AOX4 AND IND IN THE ROOM. CALLS APPROPRIATELY AND ABLE TO MAKE NEEDS KNOWN. ON 1L OF O2 NC AND TOLERATING WELL, ON CPAP AT NIGHT WITH GOOD SATS. HAS BEEN COMPLAINING OF FLANK PAIN, MEDICATER PER EMR. ENDORSES TENDERNESS TO THE TOUCH ON EACH SITE. URINE UNREMARKABLE BUT STILL HAVING GOOD OUTPUT AND STAYING WITHIN FREE WATER RESTRICTION. PT TOLERATING MEDICATIONS WELL, NO ACUTE EVENTS OVERNIGHT. PT IN BED SLEEPING, BED INLOWEST POSITION, CALL LIGHT IN REACH. CONTINUING CARE.
[2025-03-11 05:56] LABS: Bun/Creatinine Ratio 28.1 (12.0-20.0); Calcium, Blood 8.5 mg/dL (8.5-10.1); Creatinine, Blood 1.14 mg/dL (0.40-1.00)
[2025-03-11] MEDS ORDERED: Torsemide 20 MG TAB PO SCH (11:00)
[2025-03-11] MEDS ORDERED: Insulin Human Lispro 100 Units/ML 3ML Syringe SC SCH (11:30)
--- NOTE | 2025-03-11 18:17 | NUR ---
SHIFT SUMMARY PT CONT LEVEL OF CARE WITH NO ACUTE CHANGES NOTED. PT IS TO HAVE A HOME O2 EVAL DONE TOMORROW AND POSSIBLE DC PHYSICIAN WANTED TO MONITOR BG LEVELS STEROIDS WHERE DC YESTERDAY.
--- NOTE | 2025-03-12 03:36 | NUR ---
VSS, RRR AND UNLABORED, STRICT I'S AND O'S, FOLLOWING FREE FLUID RESTRICTION WELL. NO COMPLAINTS OF CHEST PAIN/SOB TO RN, REST ENCOURAGED, NO PAIN. PLAN FOR HOME O2 EVAL AND D/C FOR TODAY. REMAINS ON 1-2L O2.
[2025-03-12 04:01] VITALS: BP 100/52
[2025-03-12 05:29] LABS: Bun/Creatinine Ratio 30.8 (12.0-20.0); Calcium, Blood 8.2 mg/dL (8.5-10.1); Creatinine, Blood 1.04 mg/dL (0.40-1.00); Potassium, Blood 3.9 mmol/L (3.5-5.5)
[2025-03-12 07:41] VITALS: BP 108/69
[2025-03-12] MEDS ORDERED: Robaxin750 MG PO (10:16)
[2025-03-12] MEDS ORDERED: ALBU90OI INH (10:18)
[2025-03-12] MEDS ORDERED: NAPR500 PO (10:19)
[2025-03-12] MEDS ORDERED: LOPE2C PO (10:21)
[2025-03-12 11:20] VITALS: BP 108/62
[2025-03-12] MEDS ORDERED: SPIR50 PO (13:13)
[2025-03-12] MEDS ORDERED: FURO20 PO (13:13)
[2025-03-12] MEDS ORDERED: PANT40 PO (13:14)
[2025-03-12] MEDS ORDERED: ONDA4 PO ×2 (13:15→13:16)
[2025-03-12] MEDS ORDERED: MOME220I INH (13:17)
[2025-03-12] MEDS ORDERED: BENZ100A PO (13:17)
[2025-03-12] MEDS ORDERED: MIRALAX17 GM PO (14:47)
[2025-03-12] MEDS ORDERED: JARDIANCE10 MG PO (14:47)
--- NOTE | 2025-03-12 15:58 | NUR ---
DISCHARGE SUMMARY CLIENT DISCHARGED AT 1510 HOURS. IV ACCESS DIWSCONTINUED. CLIENT TOLERATED PROCEDURE WELL. DISCHARGE EDUCATION PACKET GIVEN AND EXPLAINED. cLIENT HAS APPOPINTMENT WITH PCP ON 03/13/2025. CLIENT IN PROCESS OF OBTAINING O2 FROM [place]. STATES SHE HAS A BOTTLE OF O2 AT HOME CURRENTLY. EDUCATION CONCERNING NEW MEDICATION GIVEN. CLIENT ENCOURAGED TO SEEK MEDICAL ATTENTION FOR SOB THRU URGENT CARE OR ER. CLIENT STATED THAT SHE HAD NO QUESTION CONCERNING DISCHARGE INTRUCTIONS OR MEDICATION. CLIENT LEFT UNIT VIA WHEELCHAIR.
== END 2025-03-12 15:42 | disposition home health service (06) | DRG 193 ==
LOC: ER 15:14 → MEDS 19:49 → ERHOLD 19:49 → MEDS 23:40
PROVIDERS: Family Medicine; Internal Medicine; Nurse Practitioner Acute Care; Student in an Organized Health Care Education/Training Program; ADMIT Student in an Organized Health Care Education/Training Program
PROC: 5A09457 Assistance with Respiratory Ventilation, 24-96 Consecutive Hours, Continuous Positive Airway Pressure (ICD-10-PCS; principal; 2025-02-27)
DX: J18.9 Pneumonia, unspecified organism (principal); J96.01 Acute respiratory failure with hypoxia; Z68.43 Body mass index [BMI] 50.0-59.9, adult; K92.0 Hematemesis; E87.1 Hypo-osmolality and hyponatremia; I50.30 Unspecified diastolic (congestive) heart failure; J44.0 Chronic obstructive pulmonary disease with (acute) lower respiratory infection; K21.9 Gastro-esophageal reflux disease without esophagitis; F41.9 Anxiety disorder, unspecified; F32.A Depression, unspecified; M25.562 Pain in left knee; G89.29 Other chronic pain; M25.572 Pain in left ankle and joints of left foot; E11.65 Type 2 diabetes mellitus with hyperglycemia; Z77.22 Contact with and (suspected) exposure to environmental tobacco smoke (acute) (chronic); T38.0X5A Adverse effect of glucocorticoids and synthetic analogues, initial encounter; G43.909 Migraine, unspecified, not intractable, without status migrainosus; E66.01 Morbid (severe) obesity due to excess calories; G47.33 Obstructive sleep apnea (adult) (pediatric); I11.0 Hypertensive heart disease with heart failure; K74.60 Unspecified cirrhosis of liver; E80.6 Other disorders of bilirubin metabolism; Z91.013 Allergy to seafood; Z88.0 Allergy status to penicillin; Z88.5 Allergy status to narcotic agent; Z87.19 Personal history of other diseases of the digestive system; Z90.710 Acquired absence of both cervix and uterus; Z87.440 Personal history of urinary (tract) infections; Z88.8 Allergy status to other drugs, medicaments and biological substances; Z79.51 Long term (current) use of inhaled steroids; Z79.899 Other long term (current) drug therapy
CPT/HCPCS: 36415; 71046; 71260; 80048; 80053; 80202; 82947; 83036; 83735; 83880; 84145; 85025; 85027; 85610; 87070; 87205; 93306; 94640; 94660; 94664; 94761; 94762; 99285; A9270; J0456; J0696; J1644; J1815; J1940; J1956; J2405; J2470; J2919; J3370; J3480; J7040; J7050; J7512; Q9967